=== PATIENT | male | born 1990 | race Caucasian/White ===

== ENCOUNTER 2016-08-09 19:51 | Emergency (ER) | payer MEDICARE ==
--- NOTE | 2016-08-09 22:40 | ERNOTE ---
Medical Problem HPI - General Chief Complaint: Nausea/Vomiting Time Seen by Provider: 08/09/16 22:38 Source: patient Exam Limitations: no limitations - Immun/Allergies/Home Medications Immunizations: IMMUNIZATION HX Immunizations Up to Date Yes History of Influenza Vaccine No Hx Pneumococcal Vaccination No Allergies/Adverse Reactions: Allergies Sulfa (Sulfonamide Antibiotics) Allergy (Verified 07/01/14 21:37) Home Medications: HOME MEDICATIONS Citalopram Hydrobromide [Citalopram HBr] 40 mg PO DAILY 07/01/14 [Last Taken Unknown] Lidocaine HCl [Lidocaine HCl Viscous 2%] 1 appl TP Q1H PRN #200 ml 08/09/16 [ Last Taken Unknown] Ondansetron HCl [Zofran] 4 mg PO Q6H 08/09/16 [Last Taken Unknown] - History of Present History Narrative: Pt states he has had diarrhea for 2 days and now his hemorrhoids are bothering him Timing: getting worse Severity: moderate Modifying Factors - (Improves): Present: medication - tucks pads Modifying Factors - (Worsens): Present: eating Review of Systems - Review of Systems Constitutional: Present: chills. Absent: fever EYE: Present: no symptoms reported ENT: Present: no symptoms reported Respiratory: Present: no symptoms reported Cardiology: Present: no symptoms reported Gastrointestinal/Abdominal: Present: See HPI, nausea, vomiting - now past, diarrhea, abdominal pain - mild cramping Genitourinary: Present: no symptoms reported Musculoskeletal: Present: no symptoms reported Skin: Present: no symptoms reported Neurological: Present: no symptoms reported Endocrine: Present: no symptoms reported Hematologic/Lymphatic: Present: no symptoms reported Psych: Present: no symptoms reported - Patient's Past Medical History Patient History - Medical: Anxiety, Depression Patient History - Cardiac/Respiratory: Asthma - as a child Patient History - Cancer: No Hx of Cancer Patient History - Surgical Procedures: T & A - Social History Living Situations: home Smoking Status: Never smoker Alcohol Use: none Drug Use: none Physical Exam - Physical Exam General Appearance: Present: wd/wn, alert, no apparent distress Eye Exam: Normal inspection: bilateral Ears, Nose, Throat: Present: hearing grossly normal Neck: Present: normal inspection, supple Respiratory: Present: no respiratory distress, no accessory muscle use Rectal Exam: Present: normal rectal tone, hemorrhoids - one at 2 o'clock position prolapsed and tender, no thrombosis Back Exam: Present: normal inspection, normal range of motion Extremity Exam: Present: normal inspection, no edema, normal range of motion Neurological Exam: Present: alert, oriented, no motor/sensory deficits Skin Exam: Present: normal color, warm/dry Lymphatic Exam: Present: no adenopathy ED Progress - Vital Signs Vital Signs: Vital Signs 08/09/16 19:58 Temperature 37.3 C Pulse Rate 87 Respiratory 16 Rate Blood Pressure 142/78 O2 Sat by Pulse 97 Oximetry - Progress/Reassessment Chief Complaint: Nausea/Vomiting Departure - Departure Clinical Impression: Hemorrhoid prolapse Disposition: Home self-care Condition: Fair Instructions: Hemorrhoids, [id number] Additional Instructions: Buy preparation H cream and use that on the hemorrhoid. Use the lidocaine as needed for the next day or two. Follow up with your regular doctor if not improving Prescriptions: Lidocaine HCl [Lidocaine HCl Viscous 2%] 1 appl TP Q1H PRN #200 ml PRN Reason: tooth pain
[2016-08-09] MEDS ORDERED: LIDOCAINE HCL 20 ML UDC MM ONE (23:00)
[2016-08-09 23:29] VITALS: BP 115/69
== END 2016-08-09 23:35 | disposition home or self-care (01) ==
LOC: ER 19:51
DX: K64.8 Other hemorrhoids (principal)